=== PATIENT | male | born 1995 | race American Indian/Alaskan Native ===

== ENCOUNTER 2021-09-26 18:07 | Emergency (ER) | payer SELFPAY ==
[2021-09-26 20:38] VITALS: BP 137/83
[2021-09-26 22:08] LABS: Bilirubin,Urine Negative (Negative); Blood,Urine Negative (Negative); Color,Urine Yellow (Yellow); Protein,Urine <15 mg/dL mg/dL (Negative)
--- NOTE | 2021-09-26 22:57 | Emergency Department Report ---
ED General Adult HPI - General Chief complaint: Urogenital-Male Stated complaint: BLOOD IN URINE Time Seen by Provider: 09/26/21 22:50 Source: patient, RN notes reviewed Mode of arrival: Ambulatory Limitations: No Limitations - History of Present Illness Initial comments: The patient was evaluated in the emergency department for symptoms described in the history of present illness. He/she was evaluated in the context of the global COVID-19 pandemic, which necessitated consideration that the patient might be at risk for infection with the virus that causes COVID-19. Institutional protocols and algorithms that pertain to the evaluation of patients at risk for COVID-19 are in a state of rapid change based on information released by regulatory bodies including the CDC and federal and state organizations. These policies and algorithms were followed during the patient's care in the emergency department. Please note that these policies, procedures and recommendations changed on a rapid basis. The patient is a pleasant 26-year-old gentleman, who is not vaccinated against COVID-19, presenting to the ER today with a complaint of intermittent painless hematuria. He reports a few months ago, he noticed blood in his urine at the end of his urinary stream. This self resolved. He has not traveled to [place] or [place], does not work with blue dye, and does not consume tobacco smoke products at this time. He is a prior smoker. Today, he reports that the at the end of his urine stream, he noticed some blood. He denies testicular pain. He denies dysuria. He denies additional injuries and complaints at this time. -: Sudden Consistency: intermittent Improves with: none Worsens with: none Associated Symptoms: denies other symptoms - Related Data Allergies Allergy/AdvReac Type Severity Reaction Status Date / Time No Known Allergies Allergy Unverified 09/26/21 20:39 ED Review of Systems ROS: Stated complaint: BLOOD IN URINE Other details as noted in HPI Constitutional: denies: fever Eyes: denies: eye discharge ENT: denies: epistaxis Respiratory: denies: cough Cardiovascular: denies: chest pain Gastrointestinal: denies: abdominal pain, nausea, vomiting, constipation Genitourinary: hematuria. denies: urgency, dysuria, testicular pain, testicular mass Musculoskeletal: denies: back pain Neurological: denies: weakness ED Past Medical Hx - Past Medical History Previous Medical History?: No - Surgical History Past Surgical History?: No ED Physical Exam - General Limitations: No Limitations General appearance: alert, in no apparent distress - Head Head exam: Present: atraumatic, normocephalic - Eye Eye exam: Present: normal appearance, EOMI. Absent: nystagmus - ENT ENT exam: Present: normal exam, normal orophraynx, mucous membranes moist, normal external ear exam - Neck Neck exam: Present: normal inspection, full ROM. Absent: tenderness, meningismus - Respiratory Respiratory exam: Present: normal lung sounds bilaterally. Absent: respiratory distress, wheezes, rales, rhonchi, stridor, decreased breath sounds - Cardiovascular Cardiovascular Exam: Present: regular rate, normal rhythm, normal heart sounds. Absent: bradycardia, tachycardia, irregular rhythm, systolic murmur, diastolic murmur, rubs, gallop - GI/Abdominal GI/Abdominal exam: Present: soft. Absent: distended, tenderness, guarding, pulsatile mass - Rectal Rectal exam: Present: deferred - Extremities Exam Extremities exam: Present: normal inspection, full ROM, other (2+ pulses noted in the bilateral upper extremities. There is no leg bony tenderness. The muscular compartments are soft. The pelvis is stable). Absent: pedal edema, calf tenderness - Back Exam Back exam: Present: normal inspection, full ROM. Absent: tenderness, CVA tenderness (R), CVA tenderness (L), paraspinal tenderness, vertebral tenderness - Neurological Exam Neurological exam: Present: alert, oriented X3, normal gait, other (No facial droop. Tongue midline. Extraocular movements intact bilaterally. Facial sensation intact to light touch in V1, V2, V3 distribution bilaterally. 5 and a 5 strength in 4 extremities. Sensation intact to light touch in 4 extremities.). Absent: motor sensory deficit - Psychiatric Psychiatric exam: Present: normal affect, normal mood - Skin Skin exam: Present: warm, dry, intact, normal color. Absent: rash ED Course Vital Signs 09/26/21 20:37 Temperature 98.0 F Pulse Rate 81 Respiratory 18 Rate Blood Pressure 137/83 O2 Sat by Pulse 99 Oximetry ED Medical Decision Making - Lab Data Vital Signs 09/26/21 20:37 Temperature 98.0 F Pulse Rate 81 Respiratory 18 Rate Blood Pressure 137/83 O2 Sat by Pulse 99 Oximetry Lab Results 09/26/21 Range/Units 21:59 Urine Color Yellow (Yellow) Urine Turbidity Clear (Clear) Urine pH 5.0 (5.0-7.0) Ur Specific [place] 1.030 (1.003-1.030) Urine Protein <15 mg/dl (Negative) mg/dL Urine Glucose (UA) Negative (Negative) mg/dL Urine Ketones Negative (Negative) mg/dL Urine Blood Negative (Negative) Urine Nitrite Negative (Negative) Urine Bilirubin Negative (Negative) Urine Urobilinogen 2.0 (<2.0) mg/dL Ur Leukocyte Esterase Negative (Negative) Urine WBC (Auto) 2.0 (0.0-6.0) /HPF Urine RBC (Auto) 1.0 (0.0-6.0) /HPF U Epithel Cells (Auto) 3.0 (0-13.0) /HPF - Medical Decision Making Differential diagnosis, include but not limited to: History of hematuria, malignancy, urinary tract infection Assessment and plan: 26-year-old gentleman who is afebrile with reassuring vital signs, who has soft muscular compartments, who has not worked out a lifted heavily recently, who does not have traditional exposures to blue dye, or travel risk factors, presenting with intermittent painless hematuria, which for started a few months ago, self resolved, and again started today, and now resolved. His physical examination is benign and unremarkable. His urinalysis is not consistent with infectious pathology. He is strongly counseled to follow-up with an outpatient urologist for definitive evaluation and cystoscopic evaluation. Specifically counseled on importance of following up to exclude cancer, tumor, malignancy. Patient has articulated understanding. Critical care attestation.: If time is entered above; I have spent that time in minutes in the direct care of this critically ill patient, excluding procedure time. ED Disposition Clinical Impression: History of hematuria Disposition: 01 HOME / SELF CARE / HOMELESS Is pt being admited?: No Does the pt Need Aspirin: No Condition: Good Instructions: Hematuria, Adult Additional Instructions: Recommend follow-up with a urologist, such as those who works at [facility], for history of blood in urine/hematuria, within the next 2 to 4 weeks. It is important to follow-up to be evaluated and ruled out for genitourinary cancer, tumor, malignancy. Please return to the emergency room right away with new pain, worsened pain, mi gration of pain, projectile vomiting, change in mental status, confusion, inability tolerate liquid feeds, new, worsened or different symptoms not present on the initial emergency room evaluation Referrals: [facility] [Provider Group] - 3-5 Days Forms: Work/School Release Form(ED)
== END 2021-09-27 00:15 | disposition home or self-care (01) ==
LOC: ED 18:07
DX: R31.9 Hematuria, unspecified (principal)
CPT/HCPCS: 81001; 99283

== ENCOUNTER 2022-03-09 10:28 | Emergency (ER) | payer SELFPAY ==
[2022-03-09 10:43] VITALS: BP 129/89
[2022-03-09] MEDS ORDERED: AZITHROMYCIN 1 GM ORAL PWDR PACKET PO ONE (12:53)
[2022-03-09] MEDS ORDERED: LIDOCAINE-MPF (1%) 10 MG/1 ML VIAL 5 ML INFILTRATI ONE (12:53)
--- NOTE | 2022-03-09 14:03 | Emergency Department Report ---
ED Male HPI - General Chief complaint: Urogenital-Male Stated complaint: DISCHARGE/CHEST/BODY PAIN Time Seen by Provider: 03/09/22 12:32 Source: patient Mode of arrival: Ambulatory Limitations: No Limitations - History of Present Illness Initial comments: 26-year-old black male with no past medical history presents to the emergency department for evaluation of 2-day history of penile discharge. He states that he has some clear discharge several days prior but 2 days ago the discharge became yellow along with intermittent lower abdominal pain and dysuria. He denies fever, nausea, and vomiting. He states that pain is worse is 3 out of 10. He states that his partner was diagnosed with a yeast infection and is concerned that he may have yeast infection causing this type of discharge. MD Complaint: penile discharge, dysuria -: Gradual, days(s) (2) Severity scale (0 -10): 0 Worsens with: urination discharge, dysuria. denies: swelling, mass, rash, urinary retention, blood in urine, fever, nausea/vomiting, incontinence - Related Data Sexually active: Yes Allergies Allergy/AdvReac Type Severity Reaction Status Date / Time No Known Allergies Allergy Unverified 09/26/21 20:39 ED Review of Systems ROS: Stated complaint: DISCHARGE/CHEST/BODY PAIN Other details as noted in HPI Comment: All other systems reviewed and negative Constitutional: denies: chills, fever, malaise, weakness Eyes: denies: vision change ENT: denies: congestion Respiratory: denies: cough, shortness of breath, SOB with exertion, SOB at rest, stridor, wheezing Cardiovascular: denies: chest pain, palpitations Gastrointestinal: abdominal pain. denies: nausea, vomiting, diarrhea, hematemesis, melena, hematochezia Genitourinary: dysuria, discharge. denies: urgency, frequency, hematuria, testicular pain, testicular mass Musculoskeletal: denies: back pain Neurological: denies: headache, weakness ED Past Medical Hx - Past Medical History Hx Asthma: Yes - Surgical History Past Surgical History?: No - Social History Smoking Status: Never Smoker ED Physical Exam - General Limitations: No Limitations General appearance: alert, in no apparent distress - Head Head exam: Present: atraumatic, normocephalic - Eye Eye exam: Present: normal appearance. Absent: conjunctival injection - Neck Neck exam: Present: normal inspection - Respiratory Respiratory exam: Absent: respiratory distress - Cardiovascular Cardiovascular Exam: Present: regular rate - GI/Abdominal GI/Abdominal exam: Absent: distended - exam: Present: other (Left inguinal lymphadenopathy.). Absent: urethral discharge, scrotal swelling External exam: Absent: erythema, swelling, lesions, ecchymosis - Extremities Exam Extremities exam: Present: normal inspection, normal capillary refill - Back Exam Back exam: Present: normal inspection. Absent: CVA tenderness (R), CVA tenderness (L) - Neurological Exam Neurological exam: Present: alert, oriented X3 - Psychiatric Psychiatric exam: Present: normal affect, normal mood - Skin Skin exam: Present: warm, dry, intact, normal color ED Course Vital Signs 03/09/22 10:39 Temperature 98.9 F Pulse Rate 89 Respiratory 18 Rate Blood Pressure 129/89 O2 Sat by Pulse 99 Oximetry ED Medical Decision Making - Medical Decision Making 26-year-old black male with no past medical history presents to the emergency department for evaluation of 2-day history of penile discharge. He states that he has some clear discharge several days prior but 2 days ago the discharge became yellow along with intermittent lower abdominal pain and dysuria. He denies fever, nausea, and vomiting. He states that pain is worse is 3 out of 10. He states that his partner was diagnosed with a yeast infection and is concerned that he may have yeast infection causing this type of discharge. Physical exam unremarkable, and no signs of balanitis. Patient be treated empirically with Rocephin 500 mg IM along with 1 g of azithromycin p.o. x1. Patient declined 7-day course of doxycycline stated inability to be compliant with course of medication. He is advised to practice safe sex, follow-up at the [facility] or health department of his choice for further evaluation, testing, and management, and return to the emergency department as needed. He verbalizes understanding of and agreement with plan of care. Critical care attestation.: If time is entered above; I have spent that time in minutes in the direct care of this critically ill patient, excluding procedure time. ED Disposition Clinical Impression: Urethritis Disposition: HOME / SELF CARE / HOMELESS Is pt being admited?: No Does the pt Need Aspirin: No Condition: Stable Instructions: Urethritis, Adult Additional Instructions: Follow-up at health department for further evaluation and testing. Return to the emergency department as needed. [facility] Health Dept. Adult Care [Outside] - 3-5 Days Forms: STI Treatment and Prevention Time of Disposition: 14:04
[2022-03-09 14:18] LABS: Bilirubin,Urine NEG (Negative); Blood,Urine SM (Negative); Color,Urine Yellow (Yellow)
[2022-03-09 14:27] LABS: Bacteria,Urine 1+ /HPF (Negative); Mucus,Urine FEW /HPF
[2022-03-09 14:28] LABS: WBC,Urine > 182.0 /HPF (0.0-6.0)
== END 2022-03-09 14:28 | disposition home or self-care (01) ==
LOC: ED 10:28
DX: N34.2 Other urethritis (principal); J45.909 Unspecified asthma, uncomplicated
CPT/HCPCS: 81001; 96372; 99283; J0696; J3490